=== PATIENT | male | born 1970 | race Caucasian/White ===

== ENCOUNTER 2019-03-22 22:16 | Emergency (ER) | payer OTHER ==
[~2019-03-22] VITALS: Ht 182.9 cm; Wt 95.5 kg
[2019-03-22 22:49] LABS: BASOPHILS # (AUTO) 0.1 X10'3 (0-0.2); BASOPHILS % (AUTO) 0.4 % (0-1); EOSINOPHILS # (AUTO) 0.1 X10'3 (0-0.9); EOSINOPHILS % (AUTO) 0.9 % (0-6); HEMATOCRIT 43.4 % (42.0-52.0); HEMOGLOBIN 15.2 g/dl (14.0-17.9); LYMPHOCYTES # (AUTO) 1.9 X10'3 (1.1-4.8); LYMPHOCYTES % (AUTO) 13.7 % (21-51); MEAN CORPUSCULAR HEMOGLOBIN 32.4 PG (27.0-31.0); MEAN CORPUSCULAR HGB CONC 34.9 g/dL (33.0-36.5); MEAN CORPUSCULAR VOLUME 92.7 FL (78-98); MEAN PLATELET VOLUME 7.4 FL (7.4-10.4); MONOCYTES % (AUTO) 7.6 % (2-12); NEUTROPHILS # (AUTO) 10.5 X10'3 (1.8-7.7); NEUTROPHILS % (AUTO) 77.4 % (42-75); PLATELET COUNT 303 X10'3 (140-440); RED BLOOD COUNT 4.68 X10'6 (4.70-6.10); RED CELL DISTRIBUTION WIDTH 13.8 % (11.5-14.5); WHITE BLOOD COUNT 13.6 X10'3 (4.5-11.0)
[2019-03-22 23:03] LABS: ALANINE AMINOTRANSFERASE 26 U/L (12-78); ALBUMIN 3.9 G/DL (3.4-5.0); ALBUMIN/GLOBULIN RATIO 1.1 (1.1-1.5); ALKALINE PHOSPHATASE 82 IU/L (46-116); ANION GAP 8 (8-16); ASPARTATE AMINO TRANSFERASE 14 U/L (10-37); BILIRUBIN,TOTAL 0.4 MG/DL (0.1-1.0); BLOOD UREA NITROGEN 14 MG/DL (7-18); BUN/CREATININE RATIO 10.9 (5.4-32.0); CALCIUM 9.6 MG/DL (8.5-10.1); CHLORIDE 105 MMOL/L (99-107); CREATININE 1.28 MG/DL (0.60-1.10); GLUCOSE 102 MG/DL (70-104); SODIUM 140 MMOL/L (135-145); TOTAL CARBON DIOXIDE 27.3 MMOL/L (24-32); TOTAL PROTEIN 7.5 G/DL (6.4-8.2); eGFR 60 ML/MIN
[2019-03-22] MEDS ORDERED: morphine 4 MG/ML inj SYRINge IV PRN (23:05)
[2019-03-22] MEDS ORDERED: normal saline 1000ML IV soln IVB ONE (23:05)
[2019-03-22] MEDS ORDERED: ondansetron/PF 4mg/2ml inj IV ONE (23:05)
[2019-03-22 23:17] LABS: LIPASE 136 U/L (73-393)
[2019-03-23] MEDS ORDERED: morphine 4 MG/ML inj SYRINge IV ONE (00:20)
[2019-03-23] MEDS ORDERED: FLO0.4C PO (01:02)
[2019-03-23] MEDS ORDERED: ONDA4TAB6 PO (01:02)
[2019-03-23] MEDS ORDERED: HYDR-3965 PO (01:02)
[2019-03-23 01:52] LABS: CLARITY,URINE CLOUDY (Clear); COLOR,URINE YELLOW (Yellow); GLUCOSE, URINE NEGATIVE (Neg); KETONES,URINE NEGATIVE (Neg); LEUKOCYTE ESTERASE ,URINE NEGATIVE (Neg); NITRITES, URINE NEGATIVE (Neg); OCCULT BLOOD,URINE LARGE (Neg); PROTEIN,URINE NEGATIVE (Neg); UROBILINOGEN,URINE 0.2 E.U/dL (0.2-1.0)
[2019-03-23 01:56] LABS: UA COLLECTION TYPE CLN CATCH MIDSTREAM
[2019-03-23 01:58] LABS: BACTERIA,URINE FEW /HPF (Neg); CAL OXALATE CRYSTALS FEW /HPF (NEGATIVE); MUCUS STRANDS FEW /LPF (Neg); RBC,URINE TNTC /HPF (0-2); SQUAMOUS EPITHELIAL CELL,UR FEW /LPF (FEW); WBC,URINE 0-4 /HPF (0-4)
[2019-03-23 02:15] VITALS: BP 124/66
== END 2019-03-23 02:16 | disposition home or self-care (01) ==
LOC: ER 22:17
DX: N20.0 Calculus of kidney (principal); Z79.899 Other long term (current) drug therapy
CPT/HCPCS: 36415; 74176; 80053; 81001; 83690; 85025; 85610; 96374; 96375; 96376; 99284; J2270; J2405; J7030

== ENCOUNTER 2020-12-04 16:10 | Inpatient (IN) | payer MEDICAID ==
[~2020-12-04] VITALS: Ht 182.9 cm; Wt 96.0 kg
[~2020-12-04 16:10] MED LIST: ONDA4TAB6 PO
[2020-12-04] MEDS ORDERED: HYDR-3965 PO (17:11)
[2020-12-04 17:34] LABS: BASOPHILS # (AUTO) 0.1 X10'3 (0-0.2); EOSINOPHILS # (AUTO) 0.1 X10'3 (0-0.9); EOSINOPHILS % (AUTO) 1.3 % (0-6); HEMATOCRIT 45.2 % (42.0-52.0); HEMOGLOBIN 15.4 g/dl (14.0-17.9); LYMPHOCYTES # (AUTO) 2.4 X10'3 (1.1-4.8); MEAN CORPUSCULAR HEMOGLOBIN 32.1 PG (27.0-31.0); MEAN CORPUSCULAR HGB CONC 34.1 g/dL (33.0-36.5); MEAN CORPUSCULAR VOLUME 94.2 FL (78-98); MEAN PLATELET VOLUME 7.4 FL (7.4-10.4); MONOCYTES # (AUTO) 0.6 X10'3 (0-0.9); MONOCYTES % (AUTO) 6.1 % (2-12); NEUTROPHILS # (AUTO) 6.8 X10'3 (1.8-7.7); NEUTROPHILS % (AUTO) 67.6 % (42-75); PLATELET COUNT 372 X10'3 (140-440); RED CELL DISTRIBUTION WIDTH 13.3 % (11.5-14.5); WHITE BLOOD COUNT 10.1 X10'3 (4.5-11.0)
[2020-12-04 17:43] LABS: ALANINE AMINOTRANSFERASE 25 U/L (12-78); ALBUMIN 3.8 G/DL (3.4-5.0); ALBUMIN/GLOBULIN RATIO 0.9 (1.1-1.5); ALKALINE PHOSPHATASE 77 IU/L (46-116); ANION GAP 8 (8-16); ASPARTATE AMINO TRANSFERASE 11 U/L (10-37); BILIRUBIN,TOTAL 0.4 MG/DL (0.1-1.0); BLOOD UREA NITROGEN 9 MG/DL (7-18); BUN/CREATININE RATIO 9.6 (5.4-32.0); CALCIUM 9.3 MG/DL (8.5-10.1); CHLORIDE 104 MMOL/L (99-107); CREATININE 0.94 MG/DL (0.60-1.10); GLUCOSE 102 MG/DL (70-104); POTASSIUM 4.1 MMOL/L (3.5-5.1); SODIUM 143 MMOL/L (135-145); TOTAL CARBON DIOXIDE 31.4 MMOL/L (24-32); TOTAL PROTEIN 8.1 G/DL (6.4-8.2); eGFR 85 ML/MIN
--- NOTE | 2020-12-04 20:52 | NUR ---
GIRLFRIEND, GORGE [phone]
[2020-12-04] MEDS ORDERED: PEG 3350/Na sulf,bicarb,Cl/KCl oral sol 4 liter bottle PO ONE (21:20)
--- NOTE | 2020-12-04 21:50 | NUR ---
Dr. Gorman at bedside to exam pt
[2020-12-04] MEDS ORDERED: potassium Cl 20 mEq SR tablet PO PRN ×2 (22:05)
[2020-12-04] MEDS ORDERED: ondansetron/PF 4mg/2ml inj IV PRN (22:05)
[2020-12-04] MEDS ORDERED: potassium Cl 40MEQ/1/2NS 520ml 520 ML IV PRN ×2 (22:05)
[2020-12-04] MEDS ORDERED: morphine 2 MG/ML inj. syringe IV PRN (22:05)
--- NOTE | 2020-12-04 22:06 | NUR ---
dr tejeda at bedside for admission. pt is polite and cooperative and is willing to stay as admission. piv placed to lfa, 20g. current vss. Pt to start Golitely shortly.
[2020-12-04] MEDS: normal saline 1000ml 1,000 ML IV SCH (22:18)
[2020-12-04] MEDS: morphine 2 MG/ML inj. syringe IV PRN (22:20)
[2020-12-04 22:22] LABS: PARTIAL THROMBOPLASTIN TIME 28 SECONDS (22-32)
--- NOTE | 2020-12-04 22:46 | NUR ---
PT IN ROOM, DRINKING BOWEL PREP, COMMODE AT BEDSIDE, CALL LIGHT W/IN REACH.
[2020-12-05] VITALS: BP 126/75
[2020-12-05] MEDS: morphine 2 MG/ML inj. syringe IV PRN (04:57)
[2020-12-05] MEDS: normal saline 1000ml 1,000 ML IV SCH (06:51)
[2020-12-05 07:00] VITALS: BP 111/77
--- NOTE | 2020-12-05 07:22 | NUR ---
Patient in room [facility]. I have received report from Pat RN and had the opportunity to ask questions and assume patient care.
[2020-12-05 07:30] LABS: ALANINE AMINOTRANSFERASE 16 U/L (12-78); ALBUMIN 3.1 G/DL (3.4-5.0); ALBUMIN/GLOBULIN RATIO 0.8 (1.1-1.5); ALKALINE PHOSPHATASE 71 IU/L (46-116); ANION GAP 6 (8-16); ASPARTATE AMINO TRANSFERASE 12 U/L (10-37); BILIRUBIN,TOTAL 0.6 MG/DL (0.1-1.0); BLOOD UREA NITROGEN 10 MG/DL (7-18); BUN/CREATININE RATIO 11.9 (5.4-32.0); CALCIUM 8.3 MG/DL (8.5-10.1); CHLORIDE 107 MMOL/L (99-107); CREATININE 0.84 MG/DL (0.60-1.10); GLUCOSE 85 MG/DL (70-104); SODIUM 139 MMOL/L (135-145); TOTAL CARBON DIOXIDE 25.9 MMOL/L (24-32); eGFR > 90 ML/MIN
[2020-12-05 07:31] LABS: POTASSIUM 4.5 MMOL/L (3.5-5.1)
[2020-12-05] MEDS ORDERED: K and/or MAG REPLACEMENT MC SCH (08:00)
[2020-12-05 08:12] LABS: BASOPHILS # (AUTO) 0.1 X10'3 (0-0.2); BASOPHILS % (AUTO) 0.7 % (0-1); EOSINOPHILS # (AUTO) 0.2 X10'3 (0-0.9); EOSINOPHILS % (AUTO) 2.5 % (0-6); HEMATOCRIT 42.2 % (42.0-52.0); HEMOGLOBIN 14.2 g/dl (14.0-17.9); LYMPHOCYTES # (AUTO) 2.8 X10'3 (1.1-4.8); LYMPHOCYTES % (AUTO) 32.7 % (21-51); MEAN CORPUSCULAR HEMOGLOBIN 31.5 PG (27.0-31.0); MEAN CORPUSCULAR HGB CONC 33.7 g/dL (33.0-36.5); MEAN CORPUSCULAR VOLUME 93.5 FL (78-98); MEAN PLATELET VOLUME 7.4 FL (7.4-10.4); MONOCYTES # (AUTO) 0.7 X10'3 (0-0.9); MONOCYTES % (AUTO) 8.1 % (2-12); NEUTROPHILS # (AUTO) 4.8 X10'3 (1.8-7.7); PLATELET COUNT 312 X10'3 (140-440); RED BLOOD COUNT 4.51 X10'6 (4.70-6.10); RED CELL DISTRIBUTION WIDTH 13.5 % (11.5-14.5); WHITE BLOOD COUNT 8.6 X10'3 (4.5-11.0)
[2020-12-05] MEDS ORDERED: PEG 3350/Na sulf,bicarb,Cl/KCl oral sol 4 liter bottle PO ONE (09:05)
--- NOTE | 2020-12-05 09:54 | NUR ---
PAGER ID: [phone] MESSAGE: Robina-Surg [phone] Re: Italo Shafer please call re: CT patient states he had one day before yesterday at [facility] do you still want scan? Addendum: 12/05/20 at 1001 by Robina Sharp RN Per Dr Alan he would still like to do the scan today.
[2020-12-05] MEDS ORDERED: iohexol 300mg/ml 100ml inj. ONE (10:06)
--- NOTE | 2020-12-05 10:11 | NUR ---
Patient heading to CT with tech via wheelchair.
[2020-12-05 11:00] VITALS: BP 130/80
--- NOTE | 2020-12-05 11:44 | NUR ---
PAGER ID: [phone] MESSAGE: Robina-Surg [phone] Re: Italo patient wanting to leave AMA please call
--- NOTE | 2020-12-05 12:00 | NUR ---
ANTOINE Newell came to the desk and advised me that patient states" I am going outside to smoke." Osiris advised patient this is a non smoking facility and said let me get your nurse. When I went into patients room he was very nice but stated he wanted to go outside to smoke. I advised patient this is a non smoking facility and he could not go outside to smoke but I could get a nicotine patch for him. Patient states he wants to leave. I explained to patient that we are trying to get him cleared out with golytle so he can have his colonoscopy this afternoon and the doctor was looking into having a lung biopsy for his lung. Patient states" you can't hold me against my will and I advised if he wants to leave AMA he would have to sign a paper and I would take his IV out but patient should really try and stay so we can get his procedure done. Dr Alan was paged and showed up on the floor. Patient was up in the bathroom at that time. Dr Alan and I returned to the nursing station to wait for patient to get out of the bathroom. When we got to the nursing station patient was walking at a very fast pace past nursing station with ANTOINE Navarro walking behind him. Patient was not going to let me take his IV out and kept walking towards the elevator. When I went back to the nursing station to call security patient returned to the nursing station to sign his AMA paperwork and let me take out his IV. Dr Alan at the nursing station trying to educate the patient on the need to stay. Patient stated " it is probably cancer and I have had a good life" Patient was then escorted out of hospital by security who was just following up on the call down to them.
--- NOTE | 2020-12-05 12:05 | NUR ---
Patient stated he has all his belongings.
[2020-12-06] MEDS ORDERED: fentaNYL/PF 50MCG/1 ML 2ML syringe ONE (08:23)
[2020-12-06] MEDS ORDERED: MIDAZolam 5mg/5ml vial ONE (08:24)
[2020-12-06] MEDS ORDERED: nicotine 21mg patch - 24 hr TD SCH (11:55)
== END 2020-12-05 12:05 | disposition left against medical advice (07) | DRG 254 ==
LOC: ER 16:11 → ED HOLD 22:03 → SUR 3N 23:45
PROVIDERS: ADMIT Internal Medicine; ATTEND Family Medicine
PROC: B32T1ZZ Computerized Tomography (CT Scan) of Left Pulmonary Artery using Low Osmolar Contrast (ICD-10-PCS; principal; 2020-12-05)
PROC: B32S1ZZ Computerized Tomography (CT Scan) of Right Pulmonary Artery using Low Osmolar Contrast (ICD-10-PCS; 2020-12-05)
DX: K62.89 Other specified diseases of anus and rectum (principal); F17.210 Nicotine dependence, cigarettes, uncomplicated; R91.8 Other nonspecific abnormal finding of lung field; Z87.442 Personal history of urinary calculi
CPT/HCPCS: 36415; 71045; 71260; 80053; 82378; 85025; 85610; 85730; 87081; 99285; G0378; J2250; J2270; J2405; J3010; J7030; Q9967

== ENCOUNTER 2021-01-15 11:11 | Day surgery (SDC) | payer MEDICAID ==
[~2021-01-15] VITALS: Ht 188 cm; Wt 97.2 kg
[2021-01-15] VITALS (15 sets, daily range): BP systolic 121–145; BP diastolic 75–91
[~2021-01-15 11:11] MED LIST changes: +HYDR-3965 PO; -ONDA4TAB6 PO
[2021-01-15] MEDS ORDERED: normal saline 1000ml 1,000 ML IV SCH (11:30)
[2021-01-15] MEDS ORDERED: IBUP-2697 PO (11:43)
[2021-01-15] MEDS ORDERED: HYDR-3964 PO (11:47)
[2021-01-15] MEDS ORDERED: midazolam 2 mg/2 ml injection ONE ×2 (13:06→13:45)
[2021-01-15] MEDS ORDERED: fentaNYL/PF 50MCG/1 ML 2ML syringe ONE ×2 (13:06→13:45)
[2021-01-15] MEDS ORDERED: morphine 4 MG/ML inj SYRINge IV PRN (13:25)
[2021-01-15] MEDS ORDERED: HYDROcodone/acetaminophen 5mg/325mg tablet PO PRN ×2 (13:25)
[2021-01-15] MEDS ORDERED: sodium chloride 0.45% 1,000 ML IV SCH (13:25)
== END 2021-01-15 17:08 | disposition home or self-care (01) ==
LOC: SSTAY O 11:11
PROVIDERS: ATTEND Internal Medicine
DX: R91.1 Solitary pulmonary nodule (principal); C20 Malignant neoplasm of rectum; Z20.822 Contact with and (suspected) exposure to COVID-19; Z79.899 Other long term (current) drug therapy; Z80.1 Family history of malignant neoplasm of trachea, bronchus and lung
CPT/HCPCS: 32408; 71045; 87635; 99152; 99153; C9803; J2250; J3010; 77012

== ENCOUNTER 2025-09-23 00:10 | Emergency (ER) | payer MEDICAID ==
[~2025-09-23] VITALS: Ht 182.9 cm; Wt 99.0 kg
[~2025-09-23 00:10] MED LIST changes: +HYDR-3964 PO; -HYDR-3965 PO; +IBUP-2697 PO
[2025-09-23 00:12] VITALS: BP 147/90; PULSE 88; RESP 16; O2SAT 99
--- NOTE | 2025-09-23 00:51 | Physician Documentation ---
History of Present Illness General Chief Complaint: Ear Pain Stated Complaint: LEFT EAR PAIN Time Seen by MD: 00:35 Primary Medical Doctor: None History of Present Illness Initial Comments The patient is a 55-year-old male with a past medical history of colon cancer veins of left ear pain some drainage from the left ear in the canal swelling up. Patient denies any fevers or chills states pain has a moderate. Patient states he has had issues like this on both ears over the last year. Denies any history of diabetes. Medication Reconciliation Allergies: Coded Allergies: No Known Allergies (Unverified , 03/22/19) Scheduled PRN Hydrocodone Bit/Acetaminophen (Hydrocodon-Acetaminophen 5-325), 1 TAB PO Q6H PRN for pain, (Reported) Ibuprofen (Ibuprofen), 200 MG PO PRN PRN for pain, (Reported) Past Medical History Past Medical History: Hernia, *CANCER* Past Surgical History: noncontributory Alcohol Use: None Drug Use: none Lives In: Home Review of Systems All Other Systems at this time: Reviewed and Negative Physical Exam Physical Exam Vital Signs: Temperature: 98.0, Source: Temporal, Heart Rate: 88, Respiratory Rate: 16, BP: 147/90, Pulse Oximetry: 99, Weight: 99.000 Physical Exam VITALS: Reviewed and as above. GENERAL: Alert, no apparent distress. HEENT: Normocephalic, atraumatic, PERRL, EOMI, dry mucosa, no erythema left external canal is swollen and there is some purulent exudate within the canal unable to visualize the TM GI: Soft, non-tender, bowels sounds present, no rebound, guarding, or rigidity BACK: No CVA tenderness, or swelling MUSCULOSKELETAL: No deformities, no edema SKIN: Warm and dry, no rash NEURO: Oriented x4, No motor or sensory deficit PSYCH: Normal mood and affect, no agitation Progress Results/Orders Results/Orders Completed Orders - OHLFSKATY MD Neomy/Polymyx B/Hc Otic Susp. (Cortispor (09/23/25 01:00) Medications Received in ER Medications (Trade) Dose Ordered Sig/Kendrick Route PRN Reason Start Time Stop Time Status Last Admin Dose Admin (Cortisporin Otic Suspension) 4 drop ONCE ONCE LEFT EAR 09/23/25 01:00 09/23/25 01:01 DC 09/23/25 01:05 4 DROP Vital Signs 09/23/25 09/23/25 00:12 01:02 Temp 98.0 98.0 Pulse 88 Resp 16 B/P (MAP) 147/90 Pulse Ox 99 Laboratory Tests Test 09/23/25 00:57 Glucometer 111 H Medical Decision Making Additional information obtaine: old records Findings Patient presents with left ear pain and has clinical otitis externa with swelling of the external canal and some purulent discharge in the external canal the patient is nontoxic the patient's blood sugar was checked in his not elevated, the patient is nontoxic the patient will be given corticosteroid otic suspension here and will be discharged. The patient's pulse oximetry was in terpreted as adequate normal. Prior hospitalizations has been reviewed. Differential Diagnosis Otitis media, cellulitis, otitis externa Departure Time of Disposition: 00:57 Impression: Primary Impression: External otitis of left ear Qualified Codes: H60.502 - Unspecified acute noninfective otitis externa, left ear Discharge Instructions: Otitis Externa, [id number] Additional Instructions: Use the drops four drops 3 times a day. Follow up with her health care providers soon as possible. Return for significant worsening of her symptoms Referrals: NO PRIMARY CARE PROVIDER (PCP) Signature Scribe Signature: No scribe Attestation: The note accurately reflects work and decisions made by me.Katy Neil MD 09/23/25 05:32 KATY NEIL MD Sep 23, 2025 00:51
[2025-09-23 01:02] VITALS: TEMP 98
[2025-09-23] MEDS: neomy sulf/polymyx B sulf/HC 10ml otic suspension LEFT EAR ONE (01:05)
[2025-09-24] MEDS ORDERED: AMOX-580 PO (06:00)
== END 2025-09-23 01:08 | disposition home or self-care (01) ==
LOC: ER 00:11
DX: H60.92 Unspecified otitis externa, left ear (principal); Z79.899 Other long term (current) drug therapy
CPT/HCPCS: 82948; 99283

== ENCOUNTER 2025-09-24 04:15 | Emergency (ER) | payer MEDICAID ==
[~2025-09-24] VITALS: Ht 182.9 cm; Wt 99.0 kg
[2025-09-24 04:25] VITALS: TEMP 98
--- NOTE | 2025-09-24 04:31 | Physician Documentation ---
History of Present Illness General Chief Complaint: Ear Pain Stated Complaint: EAR PAIN Time Seen by MD: 04:31 Primary Medical Doctor: None History of Present Illness Initial Comments The patient is a 55-year-old male who was seen in the emergency room last night for left ear pain and given Cortisporin otic suspension for possible external otitis he returns complaining of continued left ear pain and some right ear pain now he feels his symptoms have not improved. Patient denies any fevers. Patient states his pain has been there for about a week he has noticed some slight discharge from the left ear. Medication Reconciliation Allergies: Coded Allergies: No Known Allergies (Unverified , 03/22/19) Scheduled Amox Tr/Potassium Clavulanate 875/125 MG (Augmentin 875/125 MG), 1 TAB PO BID Scheduled PRN Hydrocodone Bit/Acetaminophen (Hydrocodon-Acetaminophen 5-325), 1 TAB PO Q6H PRN for pain, (Reported) Ibuprofen (Ibuprofen), 200 MG PO PRN PRN for pain, (Reported) Past Medical History Past Medical History: Hernia, *CANCER* Past Surgical History: noncontributory Alcohol Use: None Drug Use: none Lives In: Home Review of Systems All Other Systems at this time: Reviewed and Negative Physical Exam Physical Exam Vital Signs: Temperature: 98.0, Source: Temporal, Heart Rate: 80, Respiratory Rate: 18, BP: 141/97, Pulse Oximetry: 100, Weight: 99.000 Physical Exam VITALS: Reviewed and as above. GENERAL: Alert, no apparent distress. HEENT: Normocephalic, atraumatic, PERRL, EOMI, dry mucosa, no erythema the patient has slight swelling of the left external canal with some exudate TM is difficult to visualize does have some slight erythema to the left ear BACK: No CVA tenderness, or swelling MUSCULOSKELETAL: No deformities, no edema SKIN: Warm and dry, no rash NEURO: Oriented x4, No motor or sensory deficit PSYCH: Normal mood and affect, no agitation Progress Results/Orders Results/Orders Completed Orders - KATY NEIL MD Amox Tr/Potassium Clavulanate (Augmentin (09/24/25 06:00) Vital Signs 09/24/25 09/24/25 04:25 05:55 Temp 98.0 Pulse 80 80 Resp 18 16 B/P (MAP) 141/97 144/72 (96) Pulse Ox 100 99 Departure Time of Disposition: 06:05 Disposition: 01 HOME / SELF CARE / HOMELESS Impression: Primary Impression: External otitis of left ear Qualified Codes: H60.92 - Unspecified otitis externa, left ear Additional Impression: Otitis media Discharge Instructions: Otitis Media, Adult Referrals: NO PRIMARY CARE PROVIDER (PCP) Prescriptions Amox Tr/Potassium Clavulanate 875/125 MG (Augmentin 875/125 MG) 875 Mg-125 Mg Tablet 1 TAB PO BID, #14 TAB Prov: KATY NEIL MD 09/24/25 KATY NEIL MD Sep 24, 2025 04:31
[2025-09-24] MEDS ORDERED: AMOX-580 PO (06:00)
[2025-09-24] MEDS: amox tr/potassium clavulanate 875/125mg TAB PO ONE (06:28)
[2025-09-24 06:30] VITALS: BP 140/99; PULSE 85; RESP 16; O2SAT 98
== END 2025-09-24 06:38 | disposition home or self-care (01) ==
LOC: ER 04:16
DX: H66.92 Otitis media, unspecified, left ear (principal); H60.92 Unspecified otitis externa, left ear
CPT/HCPCS: 99283